=== PATIENT | male | born 2000 | race African-American/Black ===

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

== ENCOUNTER 2022-01-04 17:48 | Emergency (ER) | payer OTHER ==
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
[2022-01-04 19:43] VITALS: BP 126/70; PULSE 74; RESP 20; TEMP 98.1
== END 2022-01-04 19:35 | disposition home or self-care (01) ==
LOC: EC 17:48
DX: R51.9 Headache, unspecified (principal); F12.90 Cannabis use, unspecified, uncomplicated; Z88.1 Allergy status to other antibiotic agents; V49.50XA Passenger injured in collision with unspecified motor vehicles in traffic accident, initial encounter
CPT/HCPCS: 99283

== ENCOUNTER 2023-04-05 21:24 | Emergency (ER) | payer OTHER ==
[2023-04-05 21:53] VITALS: RESP 18; TEMP 97.7
--- NOTE | 2023-04-05 21:56 | ED ---
Chest Pain HPI - General Chief Complaint: Chest Pain Stated Complaint: Chest Pain Time Seen by Provider: 04/05/23 21:37 Source: patient, RN notes reviewed Mode of arrival: ambulatory Limitations: no limitations - History of Present Illness Initial Comments: 23-year-old male presents emergency Department chief complaint of chest pain. Patient states that he's had pleuritic pain last week. He was seen at another ER facility and states that he was told her shoulder pain. He states he does not pain at rest states it hurts when he takes a deep breath denies any recent traveling. No history DVT or PE. Denies fevers chills cough "like symptoms he doesn't to use a smoker. - Related Data Home Medications Medication Instructions Recorded Confirmed No Known Home Medications 05/12/16 05/12/16 Allergies Allergy/AdvReac Type Severity Reaction Status Date / Time amoxicillin Allergy Rash/Hives Verified 01/04/22 18:17 Review of Systems ROS Statement: Those systems with pertinent positive or pertinent negative responses have been documented in the HPI. ROS Other: All systems not noted in ROS Statement are negative. EKG Findings - EKG Comments: EKG Findings:: EKG performed at 22:03 sinus rhythm with a rate of 71. 118 QRS 84 QT/QTC 374/[address] elevation or depression there is noted short VT - EKG Results: EKG: interpreted by ASHWIN Past Medical History Past Medical History: No Reported History History of Any Multi-Drug Resistant Organisms: MRSA Date of last positivie culture/infection: 2005/MRSA MDRO Source:: THIGH Past Surgical History: No Surgical Hx Reported Past Psychological History: ADD/ADHD Smoking Status: Vaper Past Alcohol Use History: None Reported Past Drug Use History: Marijuana General Exam Limitations: no limitations General appearance: alert, in no apparent distress Head exam: Present: atraumatic, normocephalic, normal inspection Eye exam: Present: normal appearance, PERRL, EOMI. Absent: scleral icterus, con junctival injection, periorbital swelling ENT exam: Present: normal exam, normal oropharynx, mucous membranes moist Neck exam: Present: normal inspection, full ROM. Absent: tenderness, meningismus, lymphadenopathy Respiratory exam: Present: normal lung sounds bilaterally, chest wall tenderness. Absent: respiratory distress, wheezes, rales, rhonchi, stridor Cardiovascular Exam: Present: regular rate, normal rhythm, normal heart sounds. Absent: systolic murmur, diastolic murmur, rubs, gallop, clicks Neurological exam: Present: alert, oriented X3, CN II-XII intact, reflexes normal. Absent: motor sensory deficit Course Vital Signs 04/05/23 21:31 Temperature 97.7 F Pulse Rate 76 Respiratory 18 Rate Blood Pressure 114/72 O2 Sat by Pulse 97 Oximetry Chest Pain MDM - MDM Was pt. sent in by a medical professional or institution (YURIDIA Gray, VICE PRESIDENT OF OPERATIONS, urgent care, hospital, or senior care...) When possible be specific @ -No Did you speak to anyone other than the patient for history (EMS, parent, family, police, friend...)? What history was obtained from this source @ -No Did you review nursing and triage notes (agree or disagree)? Why? @ -I reviewed and agree with nursing and triage notes Were old charts reviewed (outside hosp., previous admission, EMS record, old EKG, old radiological studies, urgent care reports/EKG's, senior care records)? Report findings @ -No old charts were reviewed Differential Diagnosis (chest pain, altered mental status, abdominal pain women, abdominal pain men, vaginal bleeding, weakness, fever, dyspnea, syncope, headache, dizziness, GI bleed, back pain, seizure, CVA, palpatations, mental health, musculoskeletal)? @ -nDifferential Chest Pain: Stable Angina, Unstable Angina, STEMI, NSTEMI Aortic Dissection, Pneumothorax, Musculoskeletal, Esophageal Spasm GERD, Cholecystitis, Pancreatitis, Zoster, this is not meant to be an all-inclusive list. le EKG interpreted by me (3pts min.). @ -As above X-rays interpreted by me (1pt min.). @ -Chest x-ray shows no acute process CT interpreted by me (1pt min.). @ -None done U/S interpreted by me (1pt. min.). @ -None done What testing was considered but not performed or refused? (CT, X-rays, U/S, labs)? Why? @ -None What meds were considered but not given or refused? Why? @ -None Did you discuss the management of the patient with other professionals (professionals i.e. YURIDIA Gray, VICE PRESIDENT OF OPERATIONS, lab, RT, psych nurse, addiction social worker, property insurance agent, teacher, escrow officer, director of casework services)? Give summary @ -No Was smoking cessation discussed for >3mins.? @ -No Was critical care preformed (if so, how long)? @ -No Were there social determinants of health that impacted care today? How? (Homelessness, low income, unemployed, alcoholism, drug addiction, transportation, low edu. Level, literacy, decrease access to med. care, half-way, rehab)? @ -No Was there de-escalation of care discussed even if they declined (Discuss DNR or withdrawal of care, Hospice)? DNR status @ -No What co-morbidities impacted this encounter? (DM, HTN, Smoking, COPD, CAD, Cancer, CVA, ARF, Chemo, Hep., AIDS, mental health diagnosis, sleep apnea, morbid obesity)? @ -None Was patient admitted / discharged? Hospital course, mention meds given and route, prescriptions, significant lab abnormalities, going to OR and other pertinent info. @ -[Discharge patient reportedly labs, chest x-ray and EKG is unremarkable. Patient has chest wall pain. Will be discharged in stable condition return parameters were discussed. Patient negative d-dimer negative troponin Undiagnosed new problem with uncertain prognosis? @ -No Drug Therapy requiring intensive monitoring for toxicity (Heparin, Nitro, Insulin, Cardizem)? @ -No Were any procedures done? @ -No Diagnosis/symptom? @ -Chest wall pain Acute, or Chronic, or Acute on Chronic? @ -Acute Uncomplicated (without systemic symptoms) or Complicated (systemic symptoms)? @ -Uncomplicated Side effects of treatment? @ -No Exacerbation, Progression, or Severe Exacerbation? @ -No Poses a threat to life or bodily function? How? (Chest pain, [place], [place], pneumonia, PE, COPD, DKA, ARF, appy, cholecystitis, CVA, Diverticulitis, Homicidal, Wanda cidal, threat to staff... and all critical care pts) @ -No Disposition Clinical Impression: Chest wall pain Disposition: HOME SELF-CARE Condition: Stable Instructions (If sedation given, give patient instructions): Chest Pain (ED) Additional Instructions: Please return to the Emergency Department if symptoms worsen or any other concerns. Is patient prescribed a controlled substance at d/c from ED?: No Referrals: None,Stated [Primary Care Provider] - 1-2 days Time of Disposition: 23:18
[2023-04-05 22:25] LABS: Basophils % (A) 0 %; Eosinophils # (A) 0.1 k/uL (0-0.7); Eosinophils % (A) 2 %; HCT 41.4 % (39.0-53.0); Lymphocytes # (A) 2.7 k/uL (1.0-4.8); Lymphocytes % (A) 37 %; MCH 27.6 pg (25.0-35.0); MCHC 31.5 g/dL (31.0-37.0); MCV 87.6 fL (80.0-100.0); Mean Platelet Volume 8.5; Monocytes # (A) 0.5 k/uL (0-1.0); Monocytes % (A) 7 %; Neutrophils # (A) 3.8 k/uL (1.3-7.7); Neutrophils % (A) 52 %; Platelet Count 193 k/uL (150-450); RBC 4.73 m/uL (4.30-5.90); RDW 13.8 % (11.5-15.5); WBC 7.3 k/uL (3.8-10.6)
[2023-04-05 23:01] LABS: ALT 18 U/L (4-49); AST 33 U/L (17-59); African American GFR (CKD) >90 (>60 ml/min/1.73 sqM); Albumin 4.1 g/dL (3.5-5.0); Alkaline Phosphatase 66 U/L (38-126); Anion Gap 10 mmol/L; Blood Urea Nitrogen 10 mg/dL (9-20); Calcium 9.2 mg/dL (8.4-10.2); Carbon Dioxide 24 mmol/L (22-30); Chloride 105 mmol/L (98-107); Glucose 90 mg/dL (74-99); Non-African American GFR(CKD) >90 (>60 ml/min/1.73 sqM); Potassium 4.1 mmol/L (3.5-5.1); Sodium 139 mmol/L (137-145); Total Bilirubin 0.6 mg/dL (0.2-1.3); Total Protein 6.8 g/dL (6.3-8.2)
[2023-04-05 23:50] VITALS: BP 102/63; PULSE 78
--- NOTE | 2023-04-06 00:48 | XR ---
EXAMINATION TYPE: XR chest 2V DATE OF EXAM: 04/05/2023 10:00 PM CLINICAL INDICATION:Male, 23 years old with history of Chest Pain; [facility] COMPARISON: 07/11/2015 TECHNIQUE: XR chest 2V Frontal and lateral views of the chest. FINDINGS: Lungs/Pleura: There is no evidence of pleural effusion, focal consolidation, or pneumothorax. Pulmonary vascularity: Unremarkable. Heart/mediastinum: Cardiomediastinal silhouette is unremarkable. Musculoskeletal: No acute osseous pathology. IMPRESSION: No acute cardiopulmonary disease/process.
== END 2023-04-05 23:39 | disposition home or self-care (01) ==
LOC: EC 21:24
DX: R07.89 Other chest pain (principal); F17.290 Nicotine dependence, other tobacco product, uncomplicated; F12.90 Cannabis use, unspecified, uncomplicated; Z88.0 Allergy status to penicillin; Z86.59 Personal history of other mental and behavioral disorders
CPT/HCPCS: 36415; 71046; 80053; 84484; 85025; 85379; 93005; 99285

== ENCOUNTER 2023-11-08 22:56 | Emergency (ER) | payer OTHER ==
[2023-11-08 23:04] VITALS: TEMP 98.2
--- NOTE | 2023-11-08 23:18 | ED ---
General Adult HPI - General Source: patient, RN notes reviewed, old records reviewed Mode of arrival: ambulatory Limitations: no limitations <David Bustos - Last Filed: 11/08/23 23:35> <Itz Gonzáles - Last Filed: 11/09/23 01:08> - General Chief complaint: Psychiatric Symptoms Stated complaint: Mental Health Time Seen by Provider: 11/08/23 23:20 - History of Present Illness Initial comments: Patient is a 23-year-old male who presents emergency department with his mother over concern for suicidal statements. Patient made nonspecific suicidal statements such as "sometimes I wonder if it were better if I were just not here.". No direct statements of wanting to hurt himself or kill himself. These are made to both his mother as well as his child's mother. He does state that he made the statements. Denies any plans or previous attempts. Denies any homicidal ideations, times complaints. Denies any hallucinations. No psychiatric history. Was previously on Vyvanse as a child but has been off for numerous years. Has been under more stress as he has a young infant at home now and he has multiple stressors in his relationship with his 's mother. Denies any drug or alcohol abuse. Presents for further evaluation at this time. Denies chest pain, shortness of breath, abdominal pain, nausea, vomiting. Endorses very mild diarrhea. Tested positive for COVID yesterday. No upper respiratory complaints (David Bustos) - Related Data Home Medications Medication Instructions Recorded Confirmed No Known Home Medications 05/12/16 05/12/16 Allergies Allergy/AdvReac Type Severity Reaction Status Date / Time amoxicillin Allergy Rash/Hives Verified 01/04/22 18:17 Review of Systems ROS Other: All systems not noted in ROS Statement are negative. <David Bustos - Last Filed: 11/08/23 23:35> ROS Other: All systems not noted in ROS Statement are negative. <Itz Gonzáles - Last Filed: 11/09/23 01:08> ROS Statement: Those systems with pertinent positive or pertinent negative responses have been documented in the HPI. Review of Systems: CONST: Denies fever EYES: Denies blurry vision ENT: Denies nasal congestion C/V: Denies Chest pain RESP: Denies shortness of breath GI: Denies abdominal pain : Denies dysuria SKIN: Denies rash. MSK: Denies joint pain. NEURO: Denies headache (David Bustos) Past Medical History Past Medical History: No Reported History History of Any Multi-Drug Resistant Organisms: MRSA Date of last positivie culture/infection: 2005/MRSA MDRO Source:: THIGH Past Surgical History: No Surgical Hx Reported Past Psychological History: ADD/ADHD Smoking Status: Never smoker, Vaper Past Drug Use History: None Reported, Marijuana <David Bustos - Last Filed: 11/08/23 23:35> General Exam Limitations: no limitations <AkashDavid - Last Filed: 11/08/23 23:35> - General Exam Comments Initial Comments: General: Appears in no acute distress. HEAD: Normal with no signs of head trauma. EYES: EOMI. ENT: Hearing grossly intact. RESPIRATORY: No respiratory distress. C/V: Regular rate and rhythm. ABD: Abdomen is nondistended. EXT: No obvious deformity. SKIN: No rashes or lesions observed on exposed skin. NEURO: Alert and oriented. (David Bustos) Course Vital Signs 11/08/23 22:57 Temperature 98.2 F Pulse Rate 76 Respiratory 18 Rate Blood Pressure 133/86 O2 Sat by Pulse 99 Oximetry Medical Decision Making <David Bustos - Last Filed: 11/08/23 23:35> - Medical Decision Making Was pt. sent in by a medical professional or institution (YURIDIA Gray, TOURING PRODUCTION MANAGER, urgent care, hospital, or half-way...) When possible be specific @ -No Did you speak to anyone other than the patient for history (EMS, parent, family, police, friend...)? What history was obtained from this source @ -Patient's mother is at bedside and provides details concerning the patient's history as well as recent stressors. Patient corroborates what his mother is s aying. Did you review nursing and triage notes (agree or disagree)? Why? @ -I reviewed and agree with nursing and triage notes Were old charts reviewed (outside hosp., previous admission, EMS record, old EKG, old radiological studies, urgent care reports/EKG's, half-way records)? Report findings @ -No old charts were reviewed Differential Diagnosis (chest pain, altered mental status, abdominal pain women, abdominal pain men, vaginal bleeding, weakness, fever, dyspnea, syncope, headache, dizziness, GI bleed, back pain, seizure, CVA, palpatations, mental health, musculoskeletal)? @ -Differential Mental Health Depression, anxiety, bipolar, psychosis, schizophrenia, borderline personality, situational depression, adjustment disorder, behavioral disorder, brain tumor, malingering, substance abuse, encephalopathy, medication reaction, dementia, hypothyroidism, degenerative neurologic disorder, lupus.... This is not meant to be all-inclusive list EKG interpreted by me (3pts min.). @ -None done X-rays interpreted by me (1pt min.). @ -None done CT interpreted by me (1pt min.). @ -None done U/S interpreted by me (1pt. min.). @ -None done What testing was considered but not performed or refused? (CT, X-rays, U/S, labs)? Why? @ -None What meds were considered but not given or refused? Why? @ -None Did you discuss the management of the patient with other professionals (prof anne i.e. , PA, TOURING PRODUCTION MANAGER, lab, RT, psych nurse, social services aide, solar sales ambassador, teacher, uniform patrol police officer, case management rn)? Give summary @ -EPS notified of the consult Was smoking cessation discussed for >3mins.? @ -No Was critical care preformed (if so, how long)? @ -No Were there social determinants of health that impacted care today? How? (Homelessness, low income, unemployed, alcoholism, drug addiction, transportation, low edu. Level, literacy, decrease access to med. care, penitentiary, rehab)? @ -No Was there de-escalation of care discussed even if they declined (Discuss DNR or withdrawal of care, Hospice)? DNR status @ -No What co-morbidities impacted this encounter? (DM, HTN, Smoking, COPD, CAD, Cancer, CVA, ARF, Chemo, Hep., AIDS, mental health diagnosis, sleep apnea, morbid obesity)? @ -None Was patient admitted / discharged? Hospital course, mention meds given and route, prescriptions, significant lab abnormalities, going to OR and other pertinent info. @ -Patient presents after having suicidal statements to both his mother as well as his child's mother. BAT is 0. UDS is pending. Vitals are within acceptable limits. Patient is in no distress. Do not believe that laboratory studies are required at this time concerning the patient's COVID-positive test yesterday. Seems to be very mild. Patient in agreement this plan. At this time patient is medically cleared for evaluation by psychiatry. Disposition pending psychiatric evaluation. EPS notified the consult Undiagnosed new problem with uncertain prognosis? @ -No Drug Therapy requiring intensive monitoring for toxicity (Heparin, Nitro, Insulin, Cardizem)? @ -No Were any procedures done? @ -No (David Bustos) Disposition <David Bustos - Last Filed: 11/08/23 23:35> Is patient prescribed a controlled substance at d/c from ED?: No <Itz Gonzáles - Last Filed: 11/09/23 01:08> Clinical Impression: Depression Disposition: HOME SELF-CARE Condition: Fair Instructions (If sedation given, give patient instructions): Depression (ED) Referrals: None,Stated [Primary Care Provider] - 1-2 days
[2023-11-09 01:21] VITALS: BP 114/68; PULSE 53; RESP 16
== END 2023-11-09 01:21 | disposition home or self-care (01) ==
LOC: EC 22:56
DX: F32.A Depression, unspecified (principal); F17.290 Nicotine dependence, other tobacco product, uncomplicated; F12.90 Cannabis use, unspecified, uncomplicated; Z88.0 Allergy status to penicillin
CPT/HCPCS: 82075; 99285